=== PATIENT | male | born 1995 | race Caucasian/White ===

== ENCOUNTER 2025-04-27 14:19 | Emergency (ER) | payer OTHER, SELFPAY ==
[2025-04-27 14:22] VITALS: BP 157/81; PULSE 78; RESP 18; TEMP 36.8; O2SAT 100; BMI 28.0
--- NOTE | 2025-04-27 14:34 | ED_ITS ---
<Statement entered by Adalberto Panda MD - 04/27/25 15:20> I was consulted by the JUSTIN, and we discussed the complexity of the problems being addressed. I approve the treatment and management plan for this patient's care in the emergency department, thus performing a substantive portion of the medical decision making. Adalberto Panda MD Discharge Plan Disposition Chief Complaint: Back Pain/Injury Referrals Follow up/Referrals: Provider,Referral, [Primary Care Provider, Medical] - See instructions Instructions Patient Instructions: DI for Low Back Pain Print Language Print Language: Belarusian Discharge ED Provider: Adalberto Panda General Adult HPI General Chief complaint: Back Pain/Injury Stated complaint: AO lower back pain , numbness Time Seen by Provider: 04/27/25 14:29 Mode of Arrival: Ambulatory Source of Information: Patient Description of Symptoms (Recalled from ER Triage Doc. by RN): patient was lifting a weight during a drill and suddenly had issues getting back up to a full standing positions. patient stated there was a shooting pain and eveyrthing went tense and tight . History of Present Illness HPI narrative: 30-year-old male presents to the ED today for bending down to get a weight to pick it up and had difficulty and pain in his back so he had difficulty standing back up. He said he had pain and tightness like spasms in his low back and top of his pelvis. No saddle anesthesias. No bowel or bladder changes. No other symptoms. He has had no trauma. Related Data Allergies Allergy/AdvReac Type Severity Reaction Status Date / Time No Known Allergies Allergy Verified 04/27/25 14:28 [facility] Disclaimer: The information contained in this section may have been updated after the patient was seen, as this information can be updated by other users. Surgical History (Updated 04/27/25 @ 14:29 by Sonja Cottrell RN) History of open reduction and internal fixation (ORIF) procedure Social History (Updated 04/27/25 @ 15:10 by Xenia Hillman (ED), PLATE FURNACE OPERATOR) Smoking Status: Light tobacco smoker alcohol intake: former current occupational status: other Travel in the last 8 weeks?: None Have you lived/traveled outside US in past 30 days?: No Contact w/someone who lives/traveled outside US past 30 days?: No Exposure to someone with infectious disease in past 14 days?: No Do you have a fever (greater than 100.4 F or 38 C)?: No Have you tested positive for COVID-19?: No Exposed to someone with COVID-19 in past 14 days?: No Do you have a sore throat?: No Do you have a cough?: No Do you have any weakness?: No Do you have any diarrhea?: No Are you experiencing any unusual bleeding?: No Do you have any muscle aches/pain?: No Do you have any abdominal pain?: No Are you experiencing loss of taste or smell?: No ROS Obtained: Yes Systems reviewed as appropriate & no additional complaints except as documented Constitutional Constitutional: Reports as per HPI Physical Exam General General appearance: alert Head Head exam: normocephalic Eye Eye exam: Present PERRL and EOMI ENT ENT exam: Present normal oropharynx and mucous membranes moist Neck Neck exam: Present full ROM and trachea midline Respiratory Respiratory exam: Present normal lung sounds bilaterally Cardiovascular Cardiovascular exam: Present regular rate, normal rhythm, normal heart sounds, +S1 and +S2 Abdominal Exam Abdominal exam: Present soft and normal bowel sounds Extremities Exam Extremities exam: Present full ROM and normal capillary refill Back Exam Back exam: Present tenderness, muscle spasm and paraspinal tenderness Comment: No vertebral tenderness Neurological Exam Neurological exam: Present alert and oriented X3 Skin Skin exam: Present warm and dry Medical Decision Making Medical Records Screening: Per USPSTF and CDC recommendations, given the prevalence of disease in our region, it is our hospital?s policy to screen for HIV and viral Hepatitis for all patients aged 18 and over and those with ongoing risk factors. Cesar Inquiry Pt receiving controlled substance: No Cesar was queried for this patient: No Vital Signs: 04/27/25 14:22 Temperature 98.2 F Temperature Source Temporal Artery Scan Pulse Rate [Right Radial] 78 Respiratory Rate 18 Blood Pressure [Right Arm] 157/81 H Blood Pressure Mean [Right Arm] 106 Blood Pressure Source [Right Arm] Automatic Cuff Blood Pressure Position [Right Arm] Sitting 02 Sat by Pulse Oximetry 100 Oxygen Delivery Method Room Air Orders (Tests/Meds): ED MEDICATIONS Discontinued Medications Generic Name Dose Route Start Last Admin Trade Name Freq PRN Reason Stop Dose Admin Ketorolac Tromethamine 60 mg 04/27/25 14:32 04/27/25 14:41 Ketorolac 60mg/2ml Vial IM 04/27/25 14:33 60 mg ONCE ONE Administration Lidocaine 1 each 04/27/25 14:32 04/27/25 14:40 Lidocaine 5% Transdermal Patch TD 04/27/25 14:33 1 each ONCE ONE Administration Orphenadrine Citrate 60 mg 04/27/25 14:32 04/27/25 14:40 Orphenadrine Citrate 60mg/2ml Vial IM 04/27/25 14:33 60 mg ONCE ONE Administration Oxycodone HCl 5 mg 04/27/25 14:34 04/27/25 14:40 Oxycodone 5mg Immediate Release Tablet PO 04/27/25 14:35 5 mg ONCE ONE Administration Medical Decision Narrative: patient is a 30-year-old male presenting to the emergency department for evaluation of low back pain. Patient is hemodynamically stable and nontoxic- appearing upon arrival, afebrile. Differential diagnosis includes muscle sprain or strain, etc. patient being given medications for the pain patient's pain has improved with medications. Patient safe for discharge home with medications. Critical Care Critical Care Time Critical Care Time: No
[2025-04-27] MEDS: LIDOCAINE 5% TRANSDERMAL PATCH 1 EACH TD (14:40)
[2025-04-27] MEDS: OXYCODONE 5MG IMMEDIATE RELEASE TABLET 5 MG PO (14:40)
[2025-04-27] MEDS: ORPHENADRINE CITRATE 60MG/2ML VIAL 60 MG IM (14:40)
[2025-04-27] MEDS: KETOROLAC 60MG/2ML VIAL 60 MG IM (14:41)
--- OUTSIDE RECORDS SUMMARY | 2025-04-27 14:45 | XMS_ITS | Clinical Summary ---
Author Organization [facility] Address [address] [place] [address] Care Team Providers Care Tin Tie Machine Operator Automatic Name Role Phone Timbo Horn MD Unavailable [phone] Celio Ritter RT(R) Unavailable Unavailab le Allergies No known active allergies Medications No known medications Active Problems Problem Noted Date Diagnosed Date Closed fracture of shaft of right ulna 2 Overview (01/17/2022): Added automatically from request for surgery [id number] Immunizations Immunization Administration Dates Next Due Tdap 01/10/2022 Family History Relation Name Status Comments Father Mother Alive Social History Tobacco Use Types Packs/Day Years Used Date Smoking Tobacco: Never Smokeless Tobacco: Never Alcohol Use Standard Drinks/Week Comments Not Currently 0 (1 standard drink = 0.6 oz pur e alcohol) occ. social Sex and Gender Information Value Date Recorded Sex Assigned at Not on file Legal Sex Male 8:31 PM EDT Gender Identity Not on file Sexual Orientation Not on file Last Filed Vital Signs Vital Sign Reading Time Taken Comments Blood Pressure 125/63 01/20/2022 12:23 PM EDT Pulse 77 01/20/2022 12:23 PM EDT Temperature 36.9 C (98.5 F) 01/20/2022 11:55 AM EDT Respiratory Rate 18 03/14/2022 2:06 PM EDT Oxygen Saturation 100% 01/20/2022 12:23 PM EDT Inhaled Oxygen Concentration - - Weight 84.4 kg (186 lb) 06/27/2022 3:19 PM EST Height 175.3 cm (5' 9 ) 06/27/2022 3:19 PM EST Body Mass Index 27.47 06/27/2022 3:19 PM EST Plan of Treatment Health Maintenance Due Date Last Done Comments HEP C SCREENING 1996 ANNUAL WELLNESS EXAM 1999 INFLUENZA VACCINE (#1) 2025 03/28/2016 DTAP/TDAP/TD VACCINE (7 - Td or Tdap) 01/11/2032 01/10/2022, 06/07/2000, 07/08/1997, Additional history exists HIB VACCINE Completed 07/08/1997, 09/11, 1996, Additional history exists HEP A VACCINE Aged Out No longer elig ible based on patient's age to complete this topic ROTOVIRUS VACCINE Aged Out No longer eligible based on patient's age to complete this topic Medical Devices Implanted Type Area Airplane Pilot Chief Device Identifier Shelf Expiration Date Model / Serial / Lot Variax [address] Str [id number] Implanted:Qty: 1 on 01/20/2022 by Timbo Horn MD at [facility] Right: [employer] [id number] / / Bone Scr T10 F/Thr 3.5mm / [id number] Implanted:Qty: 1 on 01/20/2022 by Timbo Horn MD at [facility] Right: [employer] [id number] / / Bone Scr T10 F/Thr 3.5mm / [id number] Implanted:Qty: 4 on 01/20/2022 by Timbo Horn MD at [facility] Right: [employer] [id number] / / Loc Scr T10 F/Thr 2.7mm / [id number] Implanted:Qty: 1 on 01/20/2022 by Timbo Horn MD at [facility] Right: [employer] [id number] / / Loc Scr T10 F/Thr 2.7mm / [id number] Implanted:Qty: 1 on 01/20/2022 by Timbo Horn MD at [facility] Right: [employer] [id number] / / [id number] COMP - GENERIC Advance Directives * Full Code (Latest Code Status on File) Date Activated Date Inactivated Comments 01/20/2022 6:30 AM 01/20/2022 4:50 PM Care Teams Tin Tie Machine Operator Automatic Relationship Specialty Start Date End Date Timbo Horn MD [address] [place] [address] [id number] Orthopedic Surgery 01/14/22 Celio Ritter, RT(R) Radiology 08/12/22
--- OUTSIDE RECORDS SUMMARY | 2025-04-27 14:45 | XMS_ITS | Encounter Summary ---
Author Organization [facility] Address [address] [place] [address] Care Team Providers Care It Lead Name Role Phone Timbo Horn MD Unavailable [phone] Celio Ritter RT(R) Unavailable Unavailab le Encounter Details Date Type Department Care Team (Late st Contact Info) Description 01/18/2022 Orders Only Pre-Admission Testing [address] [facility] [place] [address] Juli Sanchez RN Pre-op testing (Primary Dx) Social History Tobacco Use Types Packs/Day Years Used Date Smoking Tobacco: Never Smokeless Tobacco: Never Alcohol Use Standard Drinks/Week Comments Not Currently 0 (1 standard drink = 0.6 oz pur e alcohol) occ. social Sex and Gender Information Value Date Recorded Sex Assigned at Not on file Legal Sex Male 8:31 PM EDT Gender Identity Not on file Sexual Orientation Not on file COVID-19 Exposure Response Date Recorded In the last 10 days, have yo u been in contact with someone who was confirmed or suspected to have Coronavirus/COVID-19? No / Unsure 01/20/2022 8:30 AM EDT documented as of this encounter Functional Status * NIBP Answer Date of Assessment Author 90/48 01/20/2022 11:48 AM EDT Shivam, Jose Francisco orr Device In * Transfer/Handoff Report Question Answer Date of Assessment Author Report given by caden petersen 01/20/2022 12:23 PM EDT Janina Walton, RN Report received by janina petersen 01/20/2022 12:23 PM ED T Janina Katz, GREGORIO Department pacu 01/20/2022 12:23 PM EDT Janina Garcia RN Department dismissal 01/20/2022 12:23 PM EDT Janina Garcia RN Transported Via Stretcher 01/20/2022 12:23 PM EDT Janina Walton RN Report Communication Report Received 01/20/2022 12:23 PM EDT Janina Katz RN * Intake (ml) Question Answer Date of Assessment Author [address] 01/20/2022 12:23 PM EDT Janina Garcia RN * Vital Signs Question Answer Date of Assessment Author BP 125/63 01/20/2022 12:23 PM EDT Janina Garcia RN Temp 98.5 01/20/2022 11:55 AM EDT Amelia Dillard RN Temp src Temporal 01/20/2022 11:55 AM EDT Amelia Dillard RN Pulse 77 01/20/2022 12:23 PM EDT Janina Garcia RN Resp 16 01/20/2022 12:23 PM EDT Janina Garcia RN Cardiac Rhythm Normal Sinus Rhythm 01/20/2022 12:18 PM EDT Amelia Winters RN Heart Rate (Monitor) 81 01/20/2022 12:18 PM EDT Amelia Winters RN * The patient has confirmed that they have removed the following: Question Answer Date of Assessment Author Dentures/Partials N/A 01/20/2022 8:24 AM EDT Ramila Aquino RN Hair pins N/A 01/20/2022 8:24 AM EDT Ramila Adams RN Nail japanese N/A 01/20/2022 8:24 AM EDT Ramila Adams RN Wigs N/A 01/20/2022 8:24 AM EDT Ramila Adams RN Prosthesis N/A 01/20/2022 8:24 AM EDT Ramila Adams RN Jewelry/Piercings N/A 01/20/2022 8:24 AM EDT Ramila Aquino RN Makeup N/A 01/20/2022 8:24 AM EDT Ramila Adams RN Tampon N/A 01/20/2022 8:24 AM EDT Ramila Adams RN Clothing Yes 01/20/2022 8:24 AM EDT Ramila Adams RN Glasses/Contacts N/A 01/20/2022 8:24 AM EDT Ramila Alvarez RN Hearing aids N/A 01/20/2022 8:24 AM EDT Ramila Adams RN Special needs (Comment) N/A 01/20/2022 8:24 A M EDT Ramila Aquino RN * Antimicrobial Showers Complete? Answer Date of Assessment Author Yes 01/20/2022 8:24 AM EDT Ramila Aquino RN * Chlorhexidine cloth prep complete? Answer Date of Assessment Author N/A 01/20/2022 8:24 AM DAVIT Ramila Aquino RN * SCD machine and DARCIE hose applied? Answer Date of Assessment Author Yes 01/20/2022 8:24 AM EDT Ramila Aquino RN * Abuse, Neglect, and Exploitation / Domestic Violence Screening Question Answer Date of Assessment Author Do you currently have a hist ory of being physically, sexually or emotionally harmed by someone caring for you? No 01/20/2022 8:28 AM DAVIT Ramila Aquino RN Do you currently have a hist ory of being financially or sexually exploited by someone caring for you? No 01/20/2022 8:28 AM Ramila Norton RN Based on physical exam, are there signs/symptoms present of abuse, neglect or exploitation? No 01/20/2022 8:28 AM DAVIT Chanda Aquino RN * Nutrition Screening Question Answer Date of Assessment Author Type of food taken Regular Food 01/20/2022 8:25 AM Ramila Norton RN Signs of dehydration? No 01/20/2022 8:25 AM Ramila Norton RN Fluid Restriction? No 01/20/2022 8:25 AM Ramila Norton RN Factors affecting nutrition None 01/20/2022 8: 25 AM DAVIT Ramila Aquino RN * Vitals Reassessment Question Answer Date of Assessment Author Automatic Restart Vitals Timer Yes 01/20/2022 12:23 PM EDT Janina Katz RN * Question Answer Date of Assessment Author Sevoflurane 0.9 01/20/2022 11:50 AM E DT Shivam, Intellivue Device In O2 0 01/20/2022 11:50 AM EDT Shivam, Intellivue Device In * Question Answer Date of Assessment Author Pulse 64 01/20/2022 11:50 AM EDT Shivam, Intellivue Device In * Joanna Score Question Answer Date of Assessment Author Circulation 2 01/20/2022 12:18 PM EDT Amelia Dillard RN Respiration 2 01/20/2022 12:18 PM EDT Amelia Dillard RN Consciousness 2 01/20/2022 12:18 PM EDT Amelia Becerril RN Color 2 01/20/2022 12:18 PM EDT Amelia Dillard RN Joanna Score 10 01/20/2022 12:18 PM EDT Amelia Becerril RN Activity 2 01/20/2022 12:18 PM EDT Amelia Dillard RN * Arrived From Question Answer Date of Assessment Author Arrived From OR 01/20/2022 11:55 AM EDT Amelia Dillard RN * Patient/Chart Verification Question Answer Date of Assessment Author ID Band Applied Yes 01/20/2022 8:24 AM EDT Ramila Coon RN Pre-op Lab/Test Results Available In chart 01/20/2022 8:24 AM EDT Ramila Aquino RN Patient ID Verified Verbal;Armband 01/20/2022 12:23 PM EDT Janina Katz RN All Consents Confirmed Operative;Informe d;An esthesia;Blood products 01/20/2022 8:24 AM EDT Ramila Aquino RN Type of Healthcare Directive None 01/20/2022 8:24 AM EDT Ramila Aquino RN * Alok Coma Scale Question Answer Date of Assessment Author Eye Opening 4 01/20/2022 12:23 PM EDT Janina Garcia RN Best Motor Response 6 01/20/2022 12:23 PM E DT Janina Katz RN * Vital Signs Question Answer Date of Assessment Author BP Location Left Upper Extremity 01/20/2022 8:30 AM E Ramila Townsend RN Patient Position Semi Fowlers 01/20/2022 8:30 AM EDT Ramila Alvarez RN BP Method Automatic 01/20/2022 8:30 AM EDT Ramila Adams RN * Oxygen Therapy Question Answer Date of Assessment Author SpO2 100 01/20/2022 12:23 PM EDT Janina Garcia RN O2 Flow Rate (l/min) 8 01/20/2022 12:10 PM EDT Amelia Winters RN O2 Device Simple Mask 01/20/2022 12:10 PM EDT Amelia Dillard RN O2 Delivery Room air 01/20/2022 12:23 PM EDT Janina Garcia RN * Height and Weight Question Answer Date of Assessment Author Height 69 01/20/2022 8:30 AM EDT Ramila Admas RN Weight 3005.31 01/20/2022 8:30 AM EDT Ramila Adams RN BSA (Calculated - sq m) 2.04 01/20/2022 8:30 A M EDT Ramila Aquino RN BMI (Calculated) 27.7 01/20/2022 8:30 AM EDT Ramila Alvarez RN * Respiratory Question Answer Date of Assessment Author Respiratory Pattern Unlabored 01/20/2022 12:23 PM E Janina Ambrose RN * Peripheral Vascular Question Answer Date of Assessment Author Peripheral Vascular (WDL) WDL 01/20/2022 8:28 AM EDT Ramila Aquino RN * RUE Neurovascular Assessment Question Answer Date of Assessment Author Capillary Refill Less than/equal to 3 seconds 01/20/2022 12:23 PM EDT Janina Katz RN Color Appropriate, even tone 01/20/2022 12:23 P M EDT Janina Katz RN Temperature Warm 01/20/2022 12:23 PM EDT Janina Garcia RN * Rogel Fall Risk Score Question Answer Date of Assessment Author Fall Level? >50 High Risk - Red 01/20/2022 8:28 AM ED Ramila Kennedy RN History of Falling, Immediate or Within 6 Months 0 01/20/2022 8:28 AM EDT Ramila Aquino RN Secondary Diagnosis 0 01/20/2022 8:28 AM ED T Ramila Aquino RN Ambulatory Aid 0 01/20/2022 8:28 AM EDT Ramila Cardenas RN IV or IV Access 0 01/20/2022 8:28 AM EDT Ramila Coon RN Gait/Transferring 0 01/20/2022 8:28 AM EDT Ramila Aquino RN Mental Status 0 01/20/2022 8:28 AM EDT Niki Ramila sheets RN Rogel Fall Risk Score 0 01/20/2022 8:28 AM EDT Ramila Aquino RN * Infection Control Evaluation Question Answer Date of Assessment Author Respiratory (2 or > need res p. isolation) None 01/20/2022 8:30 AM EDT Ramila Aquino RN History of Positive TB Test? No 01/20/2022 8 :30 AM EDT Ramila Aquino RN Ever had TB Exposure? No 01/20/2022 8:30 AM EDT Ramila Aquino RN Any Draining Wounds? No 01/20/2022 8:30 AM E DT Ramila Aquino RN Need Isolation? No 01/20/2022 8:30 AM EDT Ramila Coon RN * Skin Color/Condition (WDL) Answer Date of Assessment Author [facility] 01/20/2022 12:23 PM EDT Janina Katz RN * HEENT (WDL) Answer Date of Assessment Author [facility] 01/20/2022 12:23 PM EDT Janina Katz RN * Psychosocial (WDL) Answer Date of Assessment Author [facility] 01/20/2022 8:28 AM EDT Ramila Aquino RN * Physical Condition Answer Date of Assessment Author 4 01/20/2022 8:28 AM EDT Ramila Aquino RN * Mental Condition Answer Date of Assessment Author 4 01/20/2022 8:28 AM EDT Ramila Aquino RN * Activity Answer Date of Assessment Author 4 01/20/2022 8:28 AM EDT Ramila Aquino RN * Mobility Answer Date of Assessment Author 4 01/20/2022 8:28 AM EDT Ramila Aquino RN * Incontinence Answer Date of Assessment Author 4 01/20/2022 8:28 AM EDT Ramila Aquino RN * Jimenes Scale Score Answer Date of Assessment Author 20 01/20/2022 8:28 AM EDT Ramila Aquino RN * Cardiac (WDL) Answer Date of Assessment Author WDL 01/20/2022 12:23 PM EDT Janina Katz RN * Respiratory (WDL) Answer Date of Assessment Author WDL 01/20/2022 12:23 PM EDT Janian Katz RN * Assessment Question Answer Date of Assessment Author Timepoint Reassessment 01/20/2022 12:23 PM EDT Janina Garcia RN * Skin Integrity Head to Toe (WDL) Answer Date of Assessment Author X 01/20/2022 12:23 PM EDT Janina Katz RN * Pain 1 Question Answer Date of Assessment Author Patient Currently in Pain No 01/20/2022 8:28 AM EDT Ramila Aquino RN * Valuables Given To Answer Date of Assessment Author Family/Other;Placed under carrier 01/20/2022 8:2 4 AM EDT Ramila Aquino RN * Abdominal (WDL) Answer Date of Assessment Author WDL 01/20/2022 12:23 PM EDT Janina Katz RN * In Pain? Answer Date of Assessment Author No 01/20/2022 12:18 PM EDT Amelia Winters RN * Neuro (WDL) Answer Date of Assessment Author WDL 01/20/2022 12:23 PM EDT Janina Katz RN * ADL Screening Question Answer Date of Assessment Author Patient able to complete ADL independently? Yes 01/20/2022 8:25 AM EDT Ramila Aquino RN Extremity strength is age appropriate? Yes 01/20/2022 8:25 AM EDT Ramila Aquino RN Patient ambulates at home Yes, is independent 01/20/2022 8:25 AM EDT Ramila Aquino RN Patient use Oxygen at home? No 01/20/2022 8:25 AM EDT Ramila Aquino RN * Sensory/Cognitive Assessment Question Answer Date of Assessment Author Is patient sensory impaired? No 01/20/2022 8 :25 AM EDT Ramila Aquino RN * Psychosocial Screening Question Answer Date of Assessment Author Next of Kin or Health Manager [facility] Data Obtained? Yes 01/20/2022 8:28 AM EDT Shantel Aquino RN Next of Kin / Healthcare Partner Name; Juhi 01/20/2022 8:28 AM EDT Ramila Aquino RN Phone contact number [phone] 01/20/2022 8:28 AM E Ramila Townsend RN Relationship to patient Mother 01/20/2022 8:28 A M Ramila Norton RN Discharge Transportation provided by Mother 01/20/2022 8:28 AM EDT Ramila Aquino RN * Multiple Pain Sites Answer Date of Assessment Author No 01/20/2022 9:17 AM EDT Ramila Aquino RN * Research Study Participant Question Answer Date of Assessment Author Are you currently involved i n a research study? No 01/20/2022 8:28 AM EDT Ramila Aquino RN * Liquid Consumption Question Answer Date of Assessment Author Time of last liquid consumption 63176 2 8:25 AM EDT Ramila Aquino RN Date of last liquid consumption 11173 2 8:25 AM EDT Ramila Aquino RN * VTE Workflow Question Answer Date of Assessment Author Patient at Low Risk for VTE? Yes 01/20/2022 8 :30 AM EDT Ramila Aquino RN Ambulation Type Ambulatory 01/20/2022 8:30 AM EDT Ramila Coon RN Patient Age 18-60 01/20/2022 8:30 AM EDT Ramila Adams RN Additional Factors None 01/20/2022 8:30 AM EDT Ramila Aquino RN * ST Lead II Answer Date of Assessment Author 0.6 01/20/2022 11:48 AM EDT Shivam, Int ellivue Device In * ST Lead V5 Answer Date of Assessment Author 0.5 01/20/2022 11:48 AM EDT Shivam, Int ellivue Device In * Question Answer Date of Assessment Author Living Arrangements Parent 01/20/2022 8:26 AM ED T Ramila Aquino RN Support Systems Parent 01/20/2022 8:26 AM EDT Ramila Coon RN Type of Residence Private Residence 01/20/2022 8:26 AM EDT Ramila Aquino RN * Solid Food Consumption Question Answer Date of Assessment Author Date of last solid food consumption 91053 01/20 8:25 AM EDT Ramila Aquino RN Time of last solid food consumption 87384 01/20 8:25 AM EDT Ramila Aquino RN * EKG Answer Date of Assessment Author NSR 01/20/2022 11:45 AM EDT Amanda Welsh CRNA * Anesthesia Monitoring Question Answer Date of Assessment Author Temp 97.7 01/20/2022 11:40 AM EDT Shivam, Intellivue Device In SpO2 98 01/20/2022 11:50 AM EDT Shivam, Intellivue Device In ETCO2 1 01/20/2022 11:50 AM EDT Shivam, Intellivue Device In FiO2 33 01/20/2022 11:50 AM EDT Shivam, Intellivue Device In * Respiratory Question Answer Date of Assessment Author PIP (cmH2O) 1 01/20/2022 11:50 AM EDT Shivam, Intellivue Device In PEEP/CPAP (cm H2O) 0 01/20/2022 11:50 AM ED T Shivam, Intellivue Device In Resp Rate 17 01/20/2022 11:48 AM EDT Shivam, Intellivue Device In Vent Mode SV 01/20/2022 11:46 AM EDT Plan Willy stanley, SECURITY OFFICER Vt (observed, mL) 261 01/20/2022 11:48 AM EDT Shivam, Intellivue Device In * Agents Question Answer Date of Assessment Author Air 0 01/20/2022 11:41 AM EDT Plan Willy stanley, SECURITY OFFICER Sevoflurane 0 01/20/2022 11:50 AM EDT Plan lizeth Willy, SECURITY OFFICER * Assessment Question Answer Date of Assessment Author Pre-Induction Mallampati Score II 01/20/2022 9:52 AM EDT Willy Welsh CRNA Pre-Induction ASA Score 2 01/20/2022 9:52 A M EDT Willy Welsh CRNA Response to Pre-op Medication Awake 01/20/2022 9:52 AM EDT Willy Welsh CRNA Warming Device On;High;Forced air 01/20/2022 10:27 AM EDT Willy Welsh CRNA * Anesthesia Checklist Question Answer Date of Assessment Author Anesthesia Checklist Anesthesia apparatu s checked;Patient identified;Pulse oximeter;O2 analyzer;Ventilator;Capn ometer;Gas humidifier 01/20/2022 12:05 AM EDT Willy Welsh CRNA NIBP Site Arm L 01/20/2022 12:05 AM EDT Willy Welsh CRNA Cardiac EKG;ST segments 01/20/2022 12:05 AM EDT Willy Welsh CRNA Leads 5 01/20/2022 12:05 AM EDT Willy Welsh CRNA Temp Source Nasopharynx 01/20/2022 12:05 AM EDT Willy Welsh CRNA * Patient Belongings at Bedside Question Answer Date of Assessment Author Dentures None 01/20/2022 8:24 AM EDT Ramila Adams RN Visual Aides None 01/20/2022 8:24 AM EDT Ramila Adams RN Jewelry None 01/20/2022 8:24 AM EDT Ramila Adams RN Clothing Footwear;Pants;Shirt 01/20/2022 8:24 AM Ramila Crum RN Other Valuables Cell phone 01/20/2022 8:24 AM EDT Ramila Coon RN * Post-op Call Complete Answer Date of Assessment Author Y 01/21/2022 1:01 PM EDT Ada Lopez, GREGORIO * Pre-op Call Complete Answer Date of Assessment Author Y 01/19/2022 1:54 PM EDT Amna España * Question Answer Date of Assessment Author Cardiac Rhythm Normal Sinus Rhythm 01/20/2022 12:18 PM EDT Amelia Winters, GREGORIO * Learning Needs Assessment Question Answer Date of Assessment Author How well does the patient / personal care aide understand the plan of care and the requirements associated with managing their health? Full understanding of the plan and requirements. 01/20/2022 8:26 AM Ramila Norton RN Prefered language to receive healthcare information? Albanian 01/20/2022 8:26 AM Ramila Norton RN Cultural or holiness beliefs that may affect how care and education is provided? No 01/20/2022 8:26 AM Ramila Norton RN Emotional barriers that may affect learning? No 01/20/2022 8:26 AM Ramila Norton RN Demonstrates a desire and motivation to learn? Yes 01/20/2022 8:26 AM Ramila Norton RN Physical or cognitive limitations to learning? No 01/20/2022 8:26 AM Ramila Norton RN Barriers to communication? No 01/20/2022 8:26 AM Ramila Norton RN * Abuse, Neglect, and Exploitation / Domestic Violence Screening Question Answer Date of Assessment Author Do you currently have a hist ory of being physically, sexually or emotionally harmed by someone caring for you? No 01/20/2022 8:28 AM Ramila Norton RN Do you currently have a hist ory of being financially or sexually exploited by someone caring for you? No 01/20/2022 8:28 AM Ramila Norton RN Based on physical exam, are there signs/symptoms present of abuse, neglect or exploitation? No 01/20/2022 8:28 AM Chanda Norton RN * Question Answer Date of Assessment Author Fluid Restriction? No 01/20/2022 8:25 AM DAVIT Ramila Aquino RN * Question Answer Date of Assessment Author SpO2 100 01/20/2022 12:23 PM EDT Janina Garcia RN O2 Flow Rate (l/min) 8 01/20/2022 12:10 PM EDT Amelia Winters RN * In Pain? Answer Date of Assessment Author No 01/20/2022 12:18 PM EDT Amelia Winters RN * ADL Screening Question Answer Date of Assessment Author Patient able to complete ADL independently? Yes 01/20/2022 8:25 AM EDT Ramila Aquino RN Extremity strength is age appropriate? Yes 01/20/2022 8:25 AM EDT Ramila Aquino RN Patient ambulates at home Yes, is independent 01/20/2022 8:25 AM EDT Ramila Aquino RN Patient use Oxygen at home? No 01/20/2022 8:25 AM EDT Ramila Aquino RN * Sensory/Cognitive Assessment Question Answer Date of Assessment Author Is patient sensory impaired? No 01/20/2022 8 :25 AM EDT Ramila Aquino RN * Multiple Pain Sites Answer Date of Assessment Author No 01/20/2022 9:17 AM EDT Ramila Aquino RN * Question Answer Date of Assessment Author Living Arrangements Parent 01/20/2022 8:26 AM ED T Ramila Aquino RN Support Systems Parent 01/20/2022 8:26 AM EDT Ramila Coon RN Type of Residence Private Residence 01/20/2022 8:26 AM EDT Ramila Aquino RN documented as of this encounter Mental Status * Question Answer Entry Date Author [address] 01/20/2022 12:23 PM EDT Janina Garcia RN * Question Answer Entry Date Author BP 125/63 01/20/2022 12:23 PM EDT Janina Garcia RN Temp 98.5 01/20/2022 11:55 AM EDT Amelia Dillard RN Temp src Temporal 01/20/2022 11:55 AM EDT Amelia Dillard RN Pulse 77 01/20/2022 12:23 PM EDT Janina Garcia RN Resp 16 01/20/2022 12:23 PM EDT Janina Garcia RN Cardiac Rhythm Normal Sinus Rhythm 01/20/2022 12:18 PM EDT Amelia Winters RN * Joanna Score Question Answer Entry Date Author Circulation 2 01/20/2022 12:18 PM EDT Amelia Dillard RN Respiration 2 01/20/2022 12:18 PM EDT Amelia Dillard RN Consciousness 2 01/20/2022 12:18 PM EDT Amelia Becerril RN Color 2 01/20/2022 12:18 PM EDT Amelia Dillard RN Joanna Score 10 01/20/2022 12:18 PM EDT Amelia Becerril RN Activity 2 01/20/2022 12:18 PM EDT Amelia Dillard RN * Oxygen Therapy Question Answer Entry Date Author SpO2 100 01/20/2022 12:23 PM EDT Janina Garcia RN O2 Flow Rate (l/min) 8 01/20/2022 12:10 PM EDT Amelia Winters RN O2 Device Simple Mask 01/20/2022 12:10 PM EDT Amelia Dillard RN O2 Delivery Room air 01/20/2022 12:23 PM EDT Janina Garcia RN documented in this encounter Plan of Treatment Not on file documented as of this encounter Results * SARS-CoV-2, QL, PCR (Routine/Outpatient) (01/18/2022 5:36 PM EDT) SARS-CoV-2 RNA Undetected 01/19/2022 1:23 AM EDT [facility] Comment: Testing was performed using the Qu[employer] Stephanie Direct. Fact sheets for this Emergency Use Authorization (EUA) assay can be found at the following links: For Healthcare Providers: https://www.fda.gov/media/148605/download For Patients: https://www.fda.gov/media/518526/download Test Performed by: [facility],[address] [place] [address], [employer]: Jeremías Horn D.O.; YOUIA#: [id number] Throat (Throat) 01/18/2022 5 :36 PM EDT 01/18/2022 7:15 PM EDT Narrative [facility] - 01/19/2022 1:23 AM EDT Symptomatic?->No Indications (select all that apply)->Pre-op/ planned procedure NO KNOWN ALLERGIES Janina Martins APRN MICROBIOLOGY - GENERAL ORDERA BLES Final Result [facility] [address] [place] [address] [facility] [address] [facility] [place] [address] documented in this encounter Visit Diagnoses Diagnosis Pre-op testing- Primary Preoperative examination, unspecified documented in this encounter Care Teams It Lead Relationship Specialty Start Date End Date Timbo Horn MD [address] [address] Orthopedic Surgery 01/14/22 Celio Ritter, RT(R) Radiology 08/12/22 documented as of this encounter
[2025-04-27 15:23] VITALS: BP 148/70; PULSE 80; RESP 20; TEMP 36.8; O2SAT 98
== END 2025-04-27 15:24 | disposition home or self-care (01) ==
PROVIDERS: Emergency Provider Student in an Organized Health Care Education/Training Program
DX: S39.012A Strain of muscle, fascia and tendon of lower back, initial encounter (principal); M54.16 Radiculopathy, lumbar region
CPT/HCPCS: 96372; 99284; J1885; J2360